=== PATIENT | female | born 1980 | race African-American/Black ===

== ENCOUNTER 2024-04-11 10:33 | Outpatient (CLI) | payer BC | END 2024-04-11 10:34 | disposition home or self-care (01) | LOC: CSHRAD 10:33 | PROVIDERS: ATTEND Internal Medicine Rheumatology | DX: M54.50 Low back pain, unspecified (principal); M47.816 Spondylosis without myelopathy or radiculopathy, lumbar region; M17.0 Bilateral primary osteoarthritis of knee | CPT/HCPCS: 72100 ==